=== PATIENT | male | born 1990 | race African-American/Black ===

== ENCOUNTER 2017-06-17 10:30 | Emergency (ER) | payer OTHER ==
[~2017-06-17] VITALS: Ht 188 cm; Wt 99.8 kg
--- NOTE | 2017-06-17 11:00 | NUR ---
[id number] FROM A [facility] FOR HYPERVENTILATION, PT NOT ANSWERING QUESTION. NAD NOTED, VSS, RESP EVEN AND UNLABORED. PT PUT ON MONITOR WAITING FOR MD ARRIAGA.
[2017-06-17 11:45] LABS: BASOPHILS # (AUTO) 0.2 /CMM (0.0-0.2); BASOPHILS % (AUTO) 2.3 % (0.0-2.0); EOSINOPHILS % (AUTO) 0.5 % (0.0-6.0); HEMATOCRIT 42 % (39-51); HEMOGLOBIN 14.3 g/dL (13.5-17.5); LYMPHOCYTES # (AUTO) 1.5 /CMM (0.8-4.8); LYMPHOCYTES % (AUTO) 17.7 % (20.0-44.0); MEAN CORPUSCULAR HEMOGLOBIN 31 PG (26.0-33.0); MEAN CORPUSCULAR HGB CONC 35 g/dl (31.0-36.0); MEAN CORPUSCULAR VOLUME 90 fL (80-96); MONOCYTES # (AUTO) 0.8 /CMM (0.1-1.30); MONOCYTES % (AUTO) 9.5 % (2.0-12.0); PLATELET COUNT (AUTO) 382 /CMM (150-450); RDW COEFFICIENT OF VARIATION 11.4 (11.5-15.0); WHITE BLOOD COUNT (AUTO) 8.5 K/uL (4.3-11.0)
[2017-06-17 12:01] LABS: ALANINE AMINOTRANSFERASE 23 U/L (12-78); ALBUMIN 4.6 g/dL (3.4-5.0); ALKALINE PHOSPHATASE 68 U/L (46-116); ASPARTATE AMINOTRANSFERASE 35 U/L (15-37); BILIRUBIN,DIRECT 0.3 mg/dL (0.0-0.2); BILIRUBIN,TOTAL 1.2 mg/dL (0.2-1.0); CALCIUM, SERUM 9.6 mg/dL (8.5-10.1); CARBON DIOXIDE 23 mmol/L (21-32); CHLORIDE 96 mmol/L (98-107); CREATININE 1.1 mg/dL (0.6-1.3); GLUCOSE 97 mg/dL (74-106); POTASSIUM 3.1 mmol/L (3.5-5.1); SODIUM SERUM 134 mmol/L (136-145); TOTAL PROTEIN, SERUM 8.4 g/dL (6.4-8.2); UREA NITROGEN, BLOOD 16 mg/dL (7-18)
[2017-06-17 12:04] LABS: ALCOHOL, BLOOD < 3 mg/dL (0-0)
[2017-06-17] MEDS ORDERED: POTASSIUM CHLORIDE 20 MEQ TAB.PRT.SR PO ONE ×2 (12:35→13:00)
[2017-06-17 13:01] VITALS: BP 148/80
--- NOTE | 2017-06-17 13:01 | NUR ---
Patient discharged to home in stable condition. Written and verbal after care instructions given. Patient verbalizes understanding of instruction.
== END 2017-06-17 13:02 | disposition home or self-care (01) ==
LOC: ER 10:32
DX: E87.6 Hypokalemia (principal); R06.4 Hyperventilation; J45.909 Unspecified asthma, uncomplicated
CPT/HCPCS: 36415; 80048; 80076; 85025; 99284; A4606; G0480; Z7610